=== PATIENT | male | born 1965 | race Caucasian/White ===

== ENCOUNTER 2017-07-27 14:04 | Day surgery (SDC) | payer BC ==
[~2017-07-27] VITALS: Ht 182.9 cm; Wt 89.5 kg
[2017-07-27 14:37] VITALS: BP 141/90
[2017-07-27] MEDS ORDERED: LACTATED RINGERS 1,000 ML IV SCH (15:04)
[2017-07-27] MEDS ORDERED: ATOR-2 PO (15:08)
[2017-07-27] MEDS ORDERED: LIDOCAINE/PF 1%, 30ML ONE (17:05)
[2017-07-27] MEDS ORDERED: BUPIVACAINE/PF 0.5% ONE (17:05)
[2017-07-27] MEDS ORDERED: FENTANYL PF 100 MCG/2ML ONE (17:10)
[2017-07-27] MEDS ORDERED: MIDAZOLAM 1 MG/ML, 2ML ONE (17:10)
[2017-07-27] MEDS ORDERED: ONDANSETRON 2MG/ML, 2ML ONE (17:16)
[2017-07-27] MEDS ORDERED: CEFAZOLIN 1,000 MG ONE (17:16)
[2017-07-27] MEDS ORDERED: PROPOFOL 10 MG/ML, 20ML ONE (17:16)
[2017-07-27] MEDS ORDERED: KETOROLAC 30 MG/1 ML ONE (17:16)
[2017-07-27] MEDS ORDERED: DEXAMETHASONE 4 MG/ML, 1ML ONE (17:16)
[2017-07-27] MEDS ORDERED: LABETALOL 5MG/ML, 20ML IV PRN (17:30)
[2017-07-27] MEDS ORDERED: MEPERIDINE/PF 25MG/0.5ML IVPush PRN (17:30)
[2017-07-27] MEDS ORDERED: FENTANYL PF 100 MCG/2ML IV PRN (17:30)
[2017-07-27] MEDS ORDERED: HYDROmorphone 1 MG/ML, 1ML IV PRN (17:30)
[2017-07-27] MEDS ORDERED: OXYcodone 5 MG/5 ML ORAL.SOL UDC PO PRN (17:30)
[2017-07-27] MEDS ORDERED: MIDAZOLAM 1 MG/ML, 2ML IV PRN (17:30)
[2017-07-27] MEDS ORDERED: ACETAMINOPHEN 325 MG TABLET PO PRN (17:30)
[2017-07-27] MEDS ORDERED: PROMETHAZINE 25 MG/ML, 1ML IV PRN (17:30)
[2017-07-27] MEDS ORDERED: ALBUTEROL SULFATE 2.5 MG/3 ML NPPB PRN (17:30)
[2017-07-27] MEDS ORDERED: ONDANSETRON 2MG/ML, 2ML IVPush PRN (17:30)
[2017-07-27] MEDS ORDERED: hydrALAzine 20 MG/ML, 1ML IV PRN (17:30)
[2017-07-27] MEDS ORDERED: ACETAMINOPHEN 650 MG/20.3 ML UDC ONE (18:47)
[2017-07-27] MEDS ORDERED: ACETAMINOPHEN 325 MG TABLET ONE (18:48)
== END 2017-07-27 20:19 | disposition home or self-care (01) ==
LOC: OR 14:04 → 4NOR 19:10 → OR 20:19
PROVIDERS: ATTEND Orthopaedic Surgery
DX: Z47.2 Encounter for removal of internal fixation device (principal); E78.5 Hyperlipidemia, unspecified
CPT/HCPCS: 20680; 73620; 76000; J0690; J1100; J1885; J2250; J2405; J2704; J3010; J3490; J7120